=== PATIENT | male | born 1950 | race Caucasian/White ===

== ENCOUNTER → 2025-03-26 08:28 | Outpatient (CLI) | payer MEDICARE, SELFPAY | PROVIDERS: Visit Provider Chiropractor | DX: R30.0 Dysuria (principal) | CPT/HCPCS: 87086 ==

== ENCOUNTER 2025-03-26 10:30 | Emergency (ER) | payer MEDICARE, SELFPAY ==
[2025-03-26 10:35] VITALS: BP 144/63; PULSE 85; RESP 16; TEMP 36.9; O2SAT 97; BMI 28.0
[2025-03-26 10:39] VITALS: BP 144/63; PULSE 84; O2SAT 96
--- NOTE | 2025-03-26 10:56 | ED.MALEGU ---
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 He was seen at the urgent care clinic and referred here for further evaluation. He denies fever chills body aches nausea vomiting diarrhea, constipation, sick contacts, cough, runny nose, hematuria, and penilel discharge Related Data Home Medications ?Medication ?Instructions ?Recorded ?Confirmed bupropion HCl 150 mg tablet,12 hr 150 mg PO QAM 03/26/25 03/26/25 sustained-release fluticasone 100 mcg-salmeterol 50 1 ea inhalation BID 03/26/25 03/26/25 mcg/dose blistr powdr for inhalation levothyroxine 75 mcg tablet 75 mcg PO DAILY 03/26/25 03/26/25 rosuvastatin 20 mg tablet 20 mg PO ONCE PM 03/26/25 03/26/25 Previous Rx's ?Medication ?Instructions ?Recorded ciprofloxacin HCl 500 mg tablet 500 mg PO BID #14 tabs 03/26/25 metronidazole 500 mg tablet 500 mg PO Q8H #21 tabs 03/26/25 Allergies Allergy/AdvReac Type Severity Reaction Status Date / Time ceftriaxone (From Rocephin) Allergy Anaphylaxis Verified 03/26/25 10:45 shrimp Allergy Anaphylaxis Verified 03/26/25 08:33 Review of Systems Review of Systems ROS Unobtainable: All systems reviewed & are unremarkable except as noted in HPI and below Exam Narrative Exam Narrative: GENERAL: [74] year old patient appears stated age. Well-developed patient, in mild distress. HEAD: Atraumatic. Normocephalic. EYES: Pupils equal round and reactive. Extraocular motions intact. No scleral icterus. No injection or drainage. ENT: Nose without bleeding, purulent drainage. Throat without erythema, tonsillar hypertrophy or exudate. Airway patent. NECK: Trachea midline. Non tender CARDIOVASCULAR: Regular rate and rhythm without murmurs, gallops, or rubs. RESPIRATORY: Clear to auscultation. Breath sounds equal bilaterally. No wheezes, rales, or rhonchi. GASTROINTESTINAL: Abdomen soft, non-tender, nondistended. EXTREMITIES: No edema or joint tenderness. BACK: Nontender without deformity or crepitance. No flank tenderness. NEURO: AOx3. SKIN: No rash or erythema of visible areas Initial Vital Signs Initial Vital Signs: Vital Signs Temperature 98.4 F 03/26/25 10:35 Pulse Rate 85 03/26/25 10:35 Respiratory Rate 16 03/26/25 10:35 Blood Pressure 144/63 H 03/26/25 10:35 Pulse Oximetry 97 03/26/25 10:35 Oxygen Delivery Method Room Air 03/26/25 10:35 Course Orders Ordered: ED Orders 03/26/25 11:01 CT abdomen pelvis w con Stat 03/26/25 11:28 Complete Blood Count AUTO DIFF Stat Comprehensive Metabolic Panel Stat Lipase Stat Discontinued Medications Lactated Ringer's (Lactated Ringers) 1,000 mls @ 1,000 mls/hr IV BOLUS ONE Stop: 03/26/25 12:01 Last Admin: 03/26/25 12:08 Dose: 1,000 mls/hr Documented By: GAYATHRI Vital Signs Vital signs: Vital Signs - 8 hr 03/26/25 10:35 03/26/25 10:39 03/26/25 10:39 Temperature 98.4 F Pulse Rate 85 84 Respiratory Rate 16 Blood Pressure 144/63 H 144/63 H Pulse Oximetry 97 96 Oxygen Delivery Method Room Air MDM - Male Genitourinary Lab Data 03/26/25 11:28 03/26/25 11:28 Labs: Lab Results 03/26/25 Range/Units 11:28 WBC 5.0 (4.5-11.0) X10^3/uL RBC 4.99 (4.5-5.9) X10^6/uL Hgb 14.9 (13.5-17.5) g/dL Hct 45.1 (41-53) % MCV 90.4 (80-100) fL MCH 29.9 (26-34) PG MCHC 33.1 (30-36) % RDW 13.5 (11.6-14.8) % Plt Count 180 (150-400) X10^3/uL Neut % (Auto) 61.2 (50-75) % Lymph % (Auto) 24.3 L (25-40) % Hardeman % (Auto) 9.3 (3-14) % Eos % (Auto) 4.4 H (2-4) % Baso % (Auto) 0.8 (0-2) % Neut # (Auto) 3100 (0260-1513) /uL Lymph # (Auto) 1200 (9992-3747) /uL Hardeman # (Auto) 500 (0-900) /uL Eos # (Auto) 200 (0-450) /uL Baso # (Auto) 0 (0-100) /uL Sodium 138 (137-145) mmol/L Potassium 4.1 (3.4-5.1) mmol/L Chloride 102 (98-107) mmol/L Carbon Dioxide 30 (22-32) mmol/L BUN 19 (9-20) mg/dL Creatinine 1.03 (0.66-1.25) mg/dL Estimated GFR > 60 (>60) mL/min BUN/Creatinine Ratio 18.4 (6-22) Glucose 104 H (70-99) mg/dL Calcium 8.8 (8.4-10.2) mg/dL Total Bilirubin 0.7 (0.2-1.3) mg/dL AST 24 (17-59) IU/L ALT 17 (<50) IU/L Alkaline Phosphatase 63 (38-126) U/L Total Protein 6.6 (6.3-8.2) g/dL Albumin 4.1 (3.5-5.0) g/dL Globulin 2.5 (1.7-4.1) g/dL Albumin/Globulin Ratio 1.6 (1.0-2.8) Lipase 64 (23-300) U/L Imaging Data CT scan - abdomen/pelvis: Radiologist's Impression: Return with new or worsening symptoms hydrated start with clear liquid diet advance as tolerated. MDM Narrative Medical decision making narrative: Vital signs, nurse triage note, medication list, previous ER visits, and all imaging studies reviewed. CT scan showed chronic diverticular disease centered in the sigmoid was significant bowel wall thickening. Mild acute inflammation is seen representing mild diverticulitis. Patient given Cipro Flagyl here and will be DC on Cipro and Flagyl. Normal white count, CMP normal including lipase and urine was normal. Differential diagnosis includes diverticulitis pancreatitis constipation UTI stone kidney infection. Discharge Plan Departure Patient Disposition: Home Clinical Impression: Diverticulitis Instructions: DI for Diverticulitis Activity Restrictions/Additional Instructions: Return with new or worsening symptoms. Take your medicines as directed. Clear liquid diet advance as tolerated. Prescriptions: New ciprofloxacin HCl 500 mg tablet 500 mg PO BID Qty: 14 0RF metronidazole 500 mg tablet 500 mg PO Q8H Qty: 21 0RF No Action bupropion HCl 150 mg tablet sustained-release 12 hr 150 mg PO QAM levothyroxine 75 mcg tablet 75 mcg PO DAILY fluticasone propion-salmeterol 100-50 mcg/dose blister with device 1 ea inhalation BID rosuvastatin 20 mg tablet 20 mg PO ONCE PM Referrals: Miscellaneous,Doctor, MD [Primary Care Provider, Medical] Stand Alone Forms: Patient Portal/API
--- NOTE | 2025-03-26 11:01 | DI.CT.S_ITS ---
PROCEDURE: CT ABDOMEN PELVIS W CON INDICATIONS: abd pain TECHNIQUE: After the administration of intravenous contrast, axial sections acquired from the lung bases to the pubic symphysis. Coronal and sagittal reformats were performed. For radiation dose reduction, the following was used: automated exposure control, adjustment of mA and/or kV according to patient size. COMPARISON: None. FINDINGS: Image quality: Diagnostic Lower chest: Lung bases appear unremarkable. Mild atelectasis in the lingula. Normal heart size. Coronary calcifications. Mildly patulous distal esophagus. Liver: Unremarkable. Probable small segment 3 cyst Gallbladder and biliary system: Unremarkable, nondilated Pancreas: No ductal dilation Spleen: Nonenlarged Adrenals: No discrete nodules Kidneys: No solid renal mass. Right upper pole renal cyst is present. No hydronephrosis. Vessels and lymph nodes: The main portal vein appears patent. No abdominal aortic aneurysm. [id number] atherosclerotic calcifications of the aorta and its branches. Bowel and peritoneum: No evidence of small bowel obstruction. There is moderate overall fecal loading. No drainable abscess or ascites. There is moderate wall thickening of the sigmoid colon. Diffuse diverticulosis. Mild edematous fat stranding is seen around the sigmoid. Body wall: Unremarkable Pelvis: Bladder is unremarkable. Heterogeneous prostate enhancement, unremarkable on this study. Bones: No aggressive appearing osseous abnormality. There are degenerative changes. IMPRESSION: Chronic diverticular disease centered in the sigmoid, with significant bowel wall thickening. Mild acute inflammation is seen representing mild diverticulitis. Colonoscopy correlation is recommended following clinical treatment, if not recently obtained. No drainable abscess or ascites. Other findings above. Dictated by: Job Song M.D. on 03/26/2025 at 11:04 Approved by: Job Song M.D. on 03/26/2025 at 11:07
[2025-03-26 11:45] LABS: Add Manual Diff / Slide Review NO; Hematocrit 45.1 % (41-53); Hemoglobin 14.9 g/dL (13.5-17.5); Lymphocytes Absolute Auto 1200 /uL (1100-4500); Mean Corpuscular HGB Conc 33.1 % (30-36); Mean Corpuscular Hemoglobin 29.9 PG (26-34); Mean Corpuscular Volume 90.4 fL (80-100); Platelet Count 180 X10^3/uL (150-400)
[2025-03-26 11:50] LABS: Alanine Aminotransferase 17 IU/L (<50); Albumin 4.1 g/dL (3.5-5.0); Albumin Globulin Ratio 1.6 (1.0-2.8); Alkaline Phosphatase 63 U/L (38-126); Blood Urea Nitrogen 19 mg/dL (9-20); Calcium 8.8 mg/dL (8.4-10.2); Carbon Dioxide 30 mmol/L (22-32); Chloride 102 mmol/L (98-107); Estimated Glomerular Filt Rate > 60 mL/min (>60); Globulin 2.5 g/dL (1.7-4.1); Glucose 104 mg/dL (70-99); HEMOLYSIS < 15 (0-50); Lipase 64 U/L (23-300); Potassium 4.1 mmol/L (3.4-5.1); Sodium 138 mmol/L (137-145); Total Protein 6.6 g/dL (6.3-8.2)
[2025-03-26] MEDS: LACTATED RINGERS 1,000 ML 1000 ML IV (12:08)
[2025-03-26 12:40] VITALS: PULSE 71; O2SAT 98
[2025-03-26 12:54] VITALS: BP 143/65; PULSE 69; O2SAT 99
[2025-03-26 13:00] VITALS: BP 143/70; PULSE 70; O2SAT 98
[2025-03-26] MEDS: CIPROFLOXACIN 250 MG TABLET 500 MG PO (13:26)
== END 2025-03-26 13:32 | disposition home or self-care (01) ==
PROVIDERS: Emergency Provider Family Medicine
DX: K57.92 Diverticulitis of intestine, part unspecified, without perforation or abscess without bleeding (principal)
CPT/HCPCS: 36415; 51798; 74177; 80053; 83690; 85025; 87086; 96360; 99284; Q9967